=== PATIENT | female | born 1960 | race Caucasian/White ===

== ENCOUNTER 2023-07-29 16:04 | Emergency (ER) | payer OTHER, SELFPAY ==
[2023-07-29 16:19] VITALS: BP 144/86; PULSE 98; RESP 16; TEMP 36.9; O2SAT 100
--- NOTE | 2023-07-29 16:21 | ED.EAR ---
HPI - Ear Problem General Chief complaint: Ear Stated complaint: Left Ear Pain History of Present Illness HPI Narrative: Patient presents with left ear pain. No drainage from her ear no hearing loss distal feeling of pressure and discomfort to the left ear. Related Data Home Medications Medication Instructions Recorded Confirmed fluticasone propionate 50 1 spray intranasal BID 07/29/23 07/29/23 mcg/actuation nasal spray,suspension montelukast 10 mg tablet 10 mg PO DAILY 07/29/23 07/29/23 simvastatin 20 mg tablet 20 mg PO DAILY 07/29/23 07/29/23 Allergies Allergy/AdvReac Type Severity Reaction Status Date / Time metronidazole [From Flagyl] Allergy Swelling Verified 07/29/23 16:17 Review of Systems Review of Systems: CONSTITUTIONAL: Denies chills, or sweats. Reports fever and generalized body aches EYES: Denies visual changes, redness, or discharge. ENT: Denies otalgia. Reports nasal congestion runny nose and sore throat CARDIOVASCULAR: Denies chest pain, palpitations, or edema. RESPIRATORY: Denies dyspnea. Reports occasional cough GASTROINTESTINAL: Denies abdominal pain, nausea, vomiting, or diarrhea. GENITOURINARY: Denies dysuria or hematuria. SKIN: Denies rash or itching. MUSCULOSKELETAL: Denies back pain, joint pain, or myalgia. Reports generalized body aches NEUROLOGIC: Denies headache, numbness, or weakness. PSYCHIATRIC: Denies anxiety or depression. PMFSH Comments At time of signature, agree with nursing past medical, surgical, social and family history. There is no relevant family history pertinent to the presenting complaint Exam Narrative: The patient is a well-developed, well-nourished in no acute distress. SKIN: Skin is warm and dry without erythema, swelling or exudate. There is good turgor. No tenting. HEAD: Atraumatic. Normocephalic. No temporal or scalp tenderness. EYES: Moist and bright. Sclera and conjunctivae normal. No discharge. PERRLA. Extraocular motions intact. Gross visual acuity intact. EARS: Pinna is normal shape and contour. Clear external auditory canals. Right tM pearly gibbs with good cone of light, no erythema or suppuration. Bilateral cerumen noted no gross hearing deficit. Left TM bulging with moderate erythema to canal NOSE: pink, moist mucosa with good air movement. Clear rhinorrhea without nasal flaring. Septum midline. Mouth: moist mucous membranes. THROAT; mild erythema noted to posterior oropharynx with moderate postnasal drainage. Without exudate or ulceration.. Uvula midline. Normal movement of soft palate. NECK: Supple and nontender with full range of motion without discomfort. No meningeal signs. LUNGS: Equal and bilateral breath sounds without wheezes, rales or rhonchi. CHEST: The chest wall is without retractions or use of accessory muscles. HEART: Has a regular rate and rhythm without murmur, gallops, click or rub. ABDOMEN: Soft, nontender with positive active bowel sounds. No rebound tenderness. EXTREMITIES: Without cyanosis, clubbing or edema. Equal 2+ distal pulses and 2 second capillary refill noted. NEUROLOGIC: alert, active, . The patient moves all extremities with normal muscle strength. Normal muscle tone is noted. Normal coordination is noted. NO focal neurological findings noted. Course Course Level of Care: Express Care Visit Vital Signs Vital signs: Vital Signs Temperature 36.9 C 07/29/23 16:19 Pulse Rate 98 07/29/23 16:19 Respiratory Rate 16 07/29/23 16:19 Blood Pressure 144/86 H 07/29/23 16:19 Pulse Oximetry 100 07/29/23 16:19 Oxygen Delivery Room Air 07/29/23 16:19 Temperature 36.9 C 07/29/23 16:19 Pulse Rate 98 07/29/23 16:19 Respiratory Rate 16 07/29/23 16:19 Blood Pressure 144/86 H 07/29/23 16:19 Pulse Oximetry 100 07/29/23 16:19 Oxygen Delivery Room Air 07/29/23 16:19 Please DIEGO schedule a followup visit with your personal physician for further evaluation and treatment. Including rec
== END 2023-07-29 16:27 | disposition home or self-care (01) ==
PROVIDERS: Emergency Provider Nurse Practitioner Family
DX: H66.92 Otitis media, unspecified, left ear (principal); H69.92 Unspecified Eustachian tube disorder, left ear; E78.00 Pure hypercholesterolemia, unspecified
CPT/HCPCS: 99213; G0463